=== PATIENT | female | born 1980 | race Caucasian/White ===

== ENCOUNTER 2017-07-17 21:45 | Emergency (ER) | payer MEDICAID, OTHER ==
[~2017-07-17] VITALS: Ht 157.5 cm; Wt 61.7 kg
[2017-07-17 22:41] LABS: Albumin 3.3 g/dL (3.4-5.0); BUN/Creatinine Ratio 30.6; Bilirubin, Total 0.2 mg/dL (0.2-1.0); Calcium 9.2 mg/dL (8.5-10.1); Potassium 3.2 mmol/L (3.5-5.1); Total Protein 7.6 g/dL (6.4-8.2)
[2017-07-17 22:56] LABS: Basophils # (auto) 0 uL; Eosinophils # (auto) 0.1 uL; Monocytes # (auto) 0.8 uL
[2017-07-17 22:58] LABS: Basophils % (auto) 0.2 % (0.0-2.0); Eosinophils % (auto) 0.9 % (0.0-7.0); Hemoglobin 11.1 g/dL (12.2-16.2); Lymphocytes # (auto) 1.9 uL; Lymphocytes % (auto) 14.3 % (10.0-50.0); Mean Corpuscular Hemoglobin 25.6 pg (28.0-32.0); Mean Corpuscular Hgb Conc. 32.6 g/dL (32.0-36.0); Mean Corpuscular Volume 78.7 fL (80.0-100.0); Neutrophils # (auto) 10.3 uL; Neutrophils % (auto) 78.6 % (37.0-80.0); Platelet Count (auto) 366 10^3/uL (140-450); Red Blood Cells 4.32 10^6/uL (4.0-5.20); Red Cell Distribution Width 17.9 % (11.8-14.3); White Blood Cell 13.1 10^3/uL (4.4-10.8)
[2017-07-18 00:16] LABS: INR 0.95 (0.9-1.15); Partial Thromboplastin Time 32.7 sec (22.64-33.71); Prothrombin Time 10.3 sec (9.37-12.3)
[2017-07-18 01:42] LABS: Urine Pregnacy Test Negative (Negative)
[2017-07-18 01:44] LABS: Urine Bacteria NONE SEEN /hpf (None Seen); Urine Blood Negative /uL (Negative); Urine Mucus FEW (None Seen); Urine Specific Gravity 1.027 (1.001-1.035); Urine WBC 1 /hpf (0 - 5)
[2017-07-18 01:52] LABS: Alcohol, Urine < 3.0 mg/dL (0-5); Amphetamine Screen, Urine POSITIVE (NEGATIVE); Barbiturate Scree,Urine NEGATIVE (NEGATIVE); Benzodiazephine Screen, Urine NEGATIVE (NEGATIVE); Cannabinoid Screen, Urine NEGATIVE (NEGATIVE); Cocaine Screen, Urine NEGATIVE (NEGATIVE); Opiate Scree,Urine POSITIVE (NEGATIVE); Phencyclidine Screen, Urine NEGATIVE (NEGATIVE)
[2017-07-18 06:31] VITALS: BP 107/70
[2017-07-18] MEDS ORDERED: LIDOCAINE 1% HCL (LOCAL ANESTH.) INJ 20ML MDV ONE (07:22)
[2017-07-18] MEDS ORDERED: LIDOCAINE 1% HCL (LOCAL ANESTH.) INJ 20ML MDV IN ONE (07:45)
== END 2017-07-18 08:02 | disposition left against medical advice (07) ==
LOC: ER 21:45
DX: L02.414 Cutaneous abscess of left upper limb (principal); F17.210 Nicotine dependence, cigarettes, uncomplicated; Z88.1 Allergy status to other antibiotic agents; Z88.6 Allergy status to analgesic agent
CPT/HCPCS: 10060; 36415; 73090; 80053; 80307; 81001; 81025; 84702; 85025; 85610; 85730; 99285; J2001

== ENCOUNTER 2019-03-29 18:36 | Emergency (ER) | payer MEDICAID ==
[~2019-03-29] VITALS: Ht 162.6 cm; Wt 54.4 kg
[2019-03-29 18:40] VITALS: BP 107/73
[2019-03-29 19:04] LABS: Basophils # (auto) 0 uL; Basophils % (auto) 0.4 % (0.0-2.0); Eosinophils # (auto) 0.1 uL; Eosinophils % (auto) 1.7 % (0.0-7.0); Hematocrit 35.7 % (36.0-46.0); Hemoglobin 11.8 g/dL (12.2-16.2); Lymphocytes # (auto) 2.4 uL; Lymphocytes % (auto) 30.6 % (10.0-50.0); Mean Corpuscular Hemoglobin 27.4 pg (28.0-32.0); Mean Corpuscular Hgb Conc. 33.1 g/dL (32.0-36.0); Mean Corpuscular Volume 82.8 fL (80.0-100.0); Monocytes # (auto) 0.4 uL; Monocytes % (auto) 5.5 % (0.0-12.0); Neutrophils # (auto) 4.9 uL; Neutrophils % (auto) 61.8 % (37.0-80.0); Nucleated Red Blood Cells % 0.1 %; Platelet Count (auto) 235 10^3/uL (140-450); Red Blood Cells 4.31 10^6/uL (4.0-5.20); Red Cell Distribution Width 14.2 % (11.8-14.3); White Blood Cell 7.9 10^3/uL (4.4-10.8)
[2019-03-29 19:11] LABS: Urine Bacteria FEW /hpf (None Seen); Urine Blood 3+ /uL (Negative); Urine Mucus FEW (None Seen); Urine WBC 26 /hpf (0 - 5)
[2019-03-29 19:20] LABS: Albumin 3.3 g/dL (3.4-5.0); Calcium 9.6 mg/dL (8.5-10.1); Potassium 3.8 mmol/L (3.5-5.1)
[2019-03-29 19:24] LABS: BUN/Creatinine Ratio 28.6; Bilirubin, Total 0.2 mg/dL (0.2-1.0); Total Protein 6.7 g/dL (6.4-8.2)
[2019-03-29] MEDS ORDERED: KETOROLAC TROMETH 30 MG/ML 1ML VIAL IV ONE (21:45)
== END 2019-03-29 22:17 | disposition left against medical advice (07) ==
LOC: EDBD 18:36 → ER 18:37
DX: R31.9 Hematuria, unspecified (principal); Z53.21 Procedure and treatment not carried out due to patient leaving prior to being seen by health care provider
CPT/HCPCS: 36415; 80053; 81001; 81025; 85025; J1885

== ENCOUNTER 2019-09-08 22:37 | Emergency (ER) | payer MEDICAID ==
[~2019-09-08] VITALS: Ht 160 cm; Wt 64.9 kg
[2019-09-08 23:44] LABS: Urine Bacteria FEW /hpf (None Seen); Urine Blood 2+ /uL (Negative); Urine Mucus FEW (None Seen); Urine Specific Gravity 1.029 (1.001-1.035); Urine WBC 5 /hpf (0 - 5)
[2019-09-09 00:06] LABS: Basophils # (auto) 0 uL; Basophils % (auto) 0.5 % (0.0-2.0); Eosinophils # (auto) 0.2 uL; Eosinophils % (auto) 2.7 % (0.0-7.0); Hematocrit 38.2 % (36.0-46.0); Hemoglobin 12.3 g/dL (12.2-16.2); Lymphocytes # (auto) 2.7 uL; Lymphocytes % (auto) 31.9 % (10.0-50.0); Mean Corpuscular Hemoglobin 26.8 pg (28.0-32.0); Mean Corpuscular Hgb Conc. 32.3 g/dL (32.0-36.0); Monocytes # (auto) 0.8 uL; Monocytes % (auto) 8.9 % (0.0-12.0); Neutrophils # (auto) 4.8 uL; Platelet Count (auto) 316 10^3/uL (140-450); Red Cell Distribution Width 14.1 % (11.8-14.3); White Blood Cell 8.5 10^3/uL (4.4-10.8)
[2019-09-09 00:24] LABS: Albumin 3.4 g/dL (3.4-5.0); Calcium 8.9 mg/dL (8.5-10.1); Potassium 3.4 mmol/L (3.5-5.1)
[2019-09-09 00:25] LABS: BUN/Creatinine Ratio 25.9
[2019-09-09 00:27] LABS: Bilirubin, Total 0.2 mg/dL (0.2-1.0); Total Protein 7.4 g/dL (6.4-8.2)
[2019-09-09 01:00] VITALS: BP 82/47
[2019-09-09 02:09] LABS: Amphetamine Screen, Urine POSITIVE (NEGATIVE); Barbiturate Scree,Urine NEGATIVE (NEGATIVE); Benzodiazephine Screen, Urine NEGATIVE (NEGATIVE); Cannabinoid Screen, Urine NEGATIVE (NEGATIVE); Cocaine Screen, Urine NEGATIVE (NEGATIVE); Opiate Scree,Urine POSITIVE (NEGATIVE)
[2019-09-09 02:16] LABS: Phencyclidine Screen, Urine NEGATIVE (NEGATIVE)
== END 2019-09-09 02:48 | disposition home or self-care (01) ==
LOC: ER 22:41
DX: N92.6 Irregular menstruation, unspecified (principal); N93.8 Other specified abnormal uterine and vaginal bleeding; F17.210 Nicotine dependence, cigarettes, uncomplicated; Z88.0 Allergy status to penicillin; Z88.1 Allergy status to other antibiotic agents
CPT/HCPCS: 36415; 76856; 80053; 80307; 81001; 81025; 84702; 85025

== ENCOUNTER 2020-10-28 01:14 | Emergency (ER) | payer MEDICAID ==
[~2020-10-28] VITALS: Ht 160 cm; Wt 67.1 kg
[2020-10-28 01:27] VITALS: BP 102/79
== END 2020-10-28 02:21 | disposition left against medical advice (07) ==
LOC: EDUNIT# 01:14 → EDBD 01:14 → ER 01:14
DX: R51.9 Headache, unspecified (principal); Z53.21 Procedure and treatment not carried out due to patient leaving prior to being seen by health care provider

== ENCOUNTER 2020-12-11 10:44 | Inpatient (IN) | payer MEDICAID ==
[~2020-12-11] VITALS: Ht 157.5 cm; Wt 67.5 kg
[2020-12-11 11:35] LABS: Urine Amorphous Crystal FEW /hpf (None Seen); Urine Bacteria FEW /hpf (None Seen); Urine Blood Negative /uL (Negative); Urine Budding Yeast MANY /hpf (None Seen); Urine Specific Gravity 1.013 (1.001-1.035); Urine WBC 16 /hpf (0 - 5); Urine WBC Clumps PRESENT /hpf (None Seen)
[2020-12-11 11:36] LABS: Basophils # (auto) 0 10 ^3/uL (0-0.2); Basophils % (auto) 0.3 % (0.0-2.0); Eosinophils # (auto) 0.1 10 ^3/uL (0-0.8); Eosinophils % (auto) 0.5 % (0.0-7.0); Hematocrit 43.8 % (36.0-46.0); Hemoglobin 14.5 g/dL (12.2-16.2); Lymphocytes # (auto) 1.9 10 ^3/uL (0.4-5.4); Lymphocytes % (auto) 15.3 % (10.0-50.0); Mean Corpuscular Hemoglobin 27.2 pg (28.0-32.0); Mean Corpuscular Volume 82.5 fL (80.0-100.0); Monocytes # (auto) 0.7 10 ^3/uL (0-1.3); Monocytes % (auto) 5.2 % (0.0-12.0); Neutrophils # (auto) 9.9 10 ^3/uL (1.6-8.6); Neutrophils % (auto) 78.7 % (37.0-80.0); Nucleated Red Blood Cells % 0.2 %; Platelet Count (auto) 297 10^3/uL (140-450); Red Blood Cells 5.31 10^6/uL (4.0-5.20); Red Cell Distribution Width 15.3 % (11.8-14.3); White Blood Cell 12.6 10^3/uL (4.4-10.8)
[2020-12-11] MEDS ORDERED: SODIUM CHLORIDE 0.9% 1,000 ML IVB ONE (12:15)
[2020-12-11] MEDS ORDERED: ONDANSETRON HCL 4 MG/2 ML VIAL IV ONE (12:15)
[2020-12-11 12:51] LABS: Albumin 3.6 g/dL (3.4-5.0); Calcium 9.7 mg/dL (8.5-10.1); Potassium 3.8 mmol/L (3.5-5.1)
[2020-12-11 12:54] LABS: BUN/Creatinine Ratio 26.6; Bilirubin, Total 0.2 mg/dL (0.2-1.0); Total Protein 8.2 g/dL (6.4-8.2)
[2020-12-11] MEDS ORDERED: MORPHINE SULF INJ 2 MG/ML SYRINGE 1ML IV ONE (15:00)
[2020-12-11 17:16] LABS: Alcohol, Urine < 3.0 mg/dL (0-10); Amphetamine Screen, Urine POSITIVE (NEGATIVE); Barbiturate Scree,Urine NEGATIVE (NEGATIVE); Benzodiazephine Screen, Urine NEGATIVE (NEGATIVE); Cannabinoid Screen, Urine NEGATIVE (NEGATIVE); Cocaine Screen, Urine NEGATIVE (NEGATIVE); Phencyclidine Screen, Urine NEGATIVE (NEGATIVE)
[2020-12-11 17:24] LABS: Opiate Scree,Urine POSITIVE (NEGATIVE)
[2020-12-11] MEDS ORDERED: PANTOPRAZOLE 40 MG/10 ML VIAL INJ IV ONE (18:00)
[2020-12-11] MEDS ORDERED: PROMETHAZINE HCL 25 MG/ML 1ML IV PRN (19:00)
[2020-12-11] MEDS ORDERED: MORPHINE SULF INJ 2 MG/ML SYRINGE 1ML IV PRN (19:00)
[2020-12-11] MEDS ORDERED: NITROGLYCERIN 0.4 MG SL TAB SL PRN (19:00)
[2020-12-11] MEDS: levoFLOXacin 500MG 100 ML IV SCH (21:02)
[2020-12-11] MEDS: D5W/SOD CHL 0.45%/KCL 20MEQ 1,000 ML IV SCH (21:02)
[2020-12-11] MEDS: metroNIDAZOLE 500MG/100ML 100 ML IV SCH (21:57)
[2020-12-11 22:00] VITALS: BP 100/80
[2020-12-11] MEDS: MORPHINE SULF INJ 2 MG/ML SYRINGE 1ML IV PRN (22:01)
[2020-12-12] MEDS ORDERED: HYDROcodone-ACET 7.5/325MG TAB PO ONE (01:00)
[2020-12-12] MEDS: LORazepam 2MG/ML-1ML VIAL IV PRN ×2 (01:38→23:52)
[2020-12-12 02:07] VITALS: BP 100/80
[2020-12-12 05:07] VITALS: BP 100/59
[2020-12-12] MEDS: metroNIDAZOLE 500MG/100ML 100 ML IV SCH ×3 (06:11→22:41)
[2020-12-12] MEDS: D5W/SOD CHL 0.45%/KCL 20MEQ 1,000 ML IV SCH ×2 (06:12→15:00)
[2020-12-12] MEDS: MORPHINE SULF INJ 2 MG/ML SYRINGE 1ML IV PRN (08:19)
[2020-12-12 09:00] VITALS: BP 99/63
[2020-12-12] MEDS: PANTOPRAZOLE 40 MG/10 ML VIAL INJ IV SCH ×2 (09:41→22:41)
[2020-12-12] MEDS: levoFLOXacin 500MG 100 ML IV SCH (09:41)
[2020-12-12] MEDS ORDERED: MORPHINE SULF INJ 2 MG/ML SYRINGE 1ML IV PRN (11:15)
[2020-12-12] MEDS ORDERED: METHADONE HCL 10 MG TAB PO SCH (11:15)
[2020-12-12 12:49] VITALS: BP 102/69
[2020-12-12] MEDS ORDERED: METHADONE HCL 10 MG TAB PO ONE (13:15)
[2020-12-12] MEDS: SUCRALFATE 1 GM/10 ML ORAL SUSP PO SCH ×2 (16:12→22:41)
[2020-12-12 17:00] VITALS: BP 108/65
[2020-12-12 22:00] VITALS: BP 103/63
[2020-12-12] MEDS: MORPHINE SULFATE 4 MG/ML SYR/VIAL IV PRN (22:41)
[2020-12-13] MEDS: MORPHINE SULFATE 4 MG/ML SYR/VIAL IV PRN ×2 (04:52→14:02)
[2020-12-13 05:44] VITALS: BP 112/60
[2020-12-13] MEDS: metroNIDAZOLE 500MG/100ML 100 ML IV SCH ×2 (06:04→14:02)
[2020-12-13] MEDS: SUCRALFATE 1 GM/10 ML ORAL SUSP PO SCH ×3 (06:04→17:16)
[2020-12-13] MEDS: D5W/SOD CHL 0.45%/KCL 20MEQ 1,000 ML IV SCH ×2 (06:28→11:00)
[2020-12-13 06:34] LABS: Basophils # (auto) 0 10 ^3/uL (0-0.2); Basophils % (auto) 0.3 % (0.0-2.0); Eosinophils # (auto) 0.2 10 ^3/uL (0-0.8); Eosinophils % (auto) 2.9 % (0.0-7.0); Hemoglobin 11.1 g/dL (12.2-16.2); Lymphocytes # (auto) 2.2 10 ^3/uL (0.4-5.4); Lymphocytes % (auto) 37.8 % (10.0-50.0); Mean Corpuscular Hemoglobin 28.3 pg (28.0-32.0); Mean Corpuscular Hgb Conc. 34.5 g/dL (32.0-36.0); Mean Corpuscular Volume 82.1 fL (80.0-100.0); Monocytes # (auto) 0.5 10 ^3/uL (0-1.3); Monocytes % (auto) 9.1 % (0.0-12.0); Neutrophils # (auto) 2.9 10 ^3/uL (1.6-8.6); Neutrophils % (auto) 49.9 % (37.0-80.0); Platelet Count (auto) 226 10^3/uL (140-450); Red Cell Distribution Width 14.5 % (11.8-14.3); White Blood Cell 5.8 10^3/uL (4.4-10.8)
[2020-12-13 06:47] LABS: Potassium 3.5 mmol/L (3.5-5.1)
[2020-12-13 07:03] LABS: Albumin 2.6 g/dL (3.4-5.0); BUN/Creatinine Ratio 21.3; Bilirubin, Total 0.4 mg/dL (0.2-1.0); Calcium 8.7 mg/dL (8.5-10.1); Total Protein 5.9 g/dL (6.4-8.2)
[2020-12-13 09:00] VITALS: BP 115/69
[2020-12-13] MEDS: PANTOPRAZOLE 40 MG/10 ML VIAL INJ IV SCH (09:31)
[2020-12-13] MEDS: levoFLOXacin 500MG 100 ML IV SCH (09:31)
[2020-12-13] MEDS ORDERED: D5W/SOD CHL 0.45%/KCL 20MEQ 1,000 ML IV SCH (14:15)
[2020-12-13 17:00] VITALS: BP 148/88
[2020-12-13] MEDS ORDERED: DOCUSATE SOD 100 MG CAP PO SCH (22:00)
== END 2020-12-13 18:55 | disposition left against medical advice (07) | DRG 254 ==
LOC: ER 10:44 → TELE 18:56 → TELE-WESTW 21:18
PROVIDERS: ADMIT Nurse Practitioner Acute Care; ATTEND Internal Medicine
DX: K92.1 Melena (principal); R65.10 Systemic inflammatory response syndrome (SIRS) of non-infectious origin without acute organ dysfunction; K56.7 Ileus, unspecified; Z20.822 Contact with and (suspected) exposure to COVID-19; D36.9 Benign neoplasm, unspecified site; F11.10 Opioid abuse, uncomplicated; F17.210 Nicotine dependence, cigarettes, uncomplicated; F31.30 Bipolar disorder, current episode depressed, mild or moderate severity, unspecified; T50.995A Adverse effect of other drugs, medicaments and biological substances, initial encounter; N20.0 Calculus of kidney; F15.90 Other stimulant use, unspecified, uncomplicated; Z90.49 Acquired absence of other specified parts of digestive tract; Z79.899 Other long term (current) drug therapy; Z79.891 Long term (current) use of opiate analgesic; Z79.01 Long term (current) use of anticoagulants; Z88.8 Allergy status to other drugs, medicaments and biological substances; Z88.0 Allergy status to penicillin; Z88.1 Allergy status to other antibiotic agents; Y92.89 Other specified places as the place of occurrence of the external cause
CPT/HCPCS: 36415; 74176; 80053; 80307; 81001; 81025; 82270; 83690; 83735; 85025; 87040; 87045; 87426; 87427; 93306; 96361; 96374; 96375; C9113; G0378; J1956; J2405; J3490

== ENCOUNTER 2023-09-17 23:23 | Emergency (ER) | payer MEDICAID ==
[~2023-09-17] VITALS: Ht 160 cm; Wt 70.4 kg
[~2023-09-17 23:23] MED LIST: PANT40TA2 PO; SUCR1TAB22 PO
[2023-09-17 23:37] VITALS: BP 94/63; PULSE 86; RESP 18; O2SAT 100
[2023-09-18 00:09] LABS: Urine Bacteria NONE SEEN /hpf (None Seen); Urine Blood 3+ /uL (Negative); Urine Clarity HAZY (Clear); Urine Color Yellow (Yellow); Urine Mucus FEW (None Seen); Urine Protein, UAD 1+ (Negative); Urine Specific Gravity 1.024 (1.001-1.035); Urine Urobilinogen Normal (Negative); Urine WBC 12 /hpf (0 - 5)
[2023-09-18 01:30] LABS: Basophils # (auto) 0 10 ^3/uL (0-0.2); Basophils % (auto) 0.4 % (0.0-2.0); Eosinophils # (auto) 0.1 10 ^3/uL (0-0.8); Hemoglobin 11.9 g/dL (12.2-16.2); Monocytes # (auto) 0.4 10 ^3/uL (0-1.3); Monocytes % (auto) 6.2 % (0.0-12.0); Neutrophils # (auto) 3.7 10 ^3/uL (1.6-8.6); Red Cell Distribution Width 16.9 % (11.8-14.3); White Blood Cell 6.1 10^3/uL (4.4-10.8)
[2023-09-18 01:31] LABS: Eosinophils % (auto) 1.5 % (0.0-7.0); Hematocrit 36.3 % (36.0-46.0); Lymphocytes % (auto) 32.3 % (10.0-50.0); Mean Corpuscular Hemoglobin 26.5 pg (28.0-32.0); Mean Corpuscular Hgb Conc. 32.8 g/dL (32.0-36.0); Mean Corpuscular Volume 80.7 fL (80.0-100.0); Neutrophils % (auto) 59.6 % (37.0-80.0)
[2023-09-18 01:44] LABS: Alanine Aminotransferase 10 U/L (7-40); Albumin 4.1 g/dL (3.2-4.8); Alkaline Phosphatase 49 U/L (46-116); Anion Gap 0 (5-15); Aspartate Aminotransferase < 8 U/L (13-40); BUN/Creatinine Ratio 21.3 (10.0-20.0); Bilirubin, Total 0.2 mg/dL (0.2-1.0); Blood Urea Nitrogen 13 mg/dL (9-23); Calcium 10.4 mg/dL (8.7-10.4); Carbon Dioxide 34 mmol/L (20-30); Chloride 109 mmol/L (98-107); Glucose 85 mg/dL (74-106); Lipase 24 U/L (12-53); Potassium 3.7 mmol/L (3.5-5.1); Sodium 143 mmol/L (136-145); Total Protein 6.7 g/dL (5.7-8.2)
[2023-09-18] MEDS ORDERED: ZOFR4T PO (02:53)
[2023-09-18] MEDS: ONDANSETRON ODT 4 MG TAB PO ONE (03:43)
== END 2023-09-18 03:42 | disposition home or self-care (01) ==
LOC: ER 23:23
DX: R10.84 Generalized abdominal pain (principal); R11.2 Nausea with vomiting, unspecified; F17.210 Nicotine dependence, cigarettes, uncomplicated; F12.10 Cannabis abuse, uncomplicated; F15.10 Other stimulant abuse, uncomplicated; F11.10 Opioid abuse, uncomplicated; Z90.49 Acquired absence of other specified parts of digestive tract; Z32.02 Encounter for pregnancy test, result negative; Z88.0 Allergy status to penicillin
CPT/HCPCS: 36415; 74176; 80053; 81001; 81025; 83605; 83690; 85025

== ENCOUNTER 2023-09-18 23:13 | Emergency (ER) | payer MEDICAID ==
[~2023-09-18] VITALS: Ht 160 cm; Wt 70.1 kg
[~2023-09-18 23:13] MED LIST changes: +ZOFR4T PO
[2023-09-18 23:54] VITALS: BP 96/56; PULSE 72; RESP 18; O2SAT 100
== END 2023-09-19 00:09 | disposition left against medical advice (07) ==
LOC: ER 23:13
DX: R10.9 Unspecified abdominal pain (principal); R11.2 Nausea with vomiting, unspecified; Z53.21 Procedure and treatment not carried out due to patient leaving prior to being seen by health care provider

== ENCOUNTER 2023-09-24 12:41 | Emergency (ER) | payer MEDICAID ==
[~2023-09-24] VITALS: Ht 160 cm; Wt 68.1 kg
[2023-09-24 13:46] VITALS: BP 123/64; PULSE 62; RESP 16; O2SAT 95
[2023-09-24 14:22] LABS: Eosinophils # (auto) 0.1 10 ^3/uL (0-0.8); Monocytes # (auto) 0.7 10 ^3/uL (0-1.3); Nucleated Red Blood Cells % 0.1 %
[2023-09-24 14:23] LABS: Basophils # (auto) 0.1 10 ^3/uL (0-0.2); Basophils % (auto) 0.6 % (0.0-2.0); Eosinophils % (auto) 0.7 % (0.0-7.0); Hematocrit 35.4 % (36.0-46.0); Hemoglobin 11.7 g/dL (12.2-16.2); Lymphocytes # (auto) 1.8 10 ^3/uL (0.4-5.4); Lymphocytes % (auto) 16.7 % (10.0-50.0); Mean Corpuscular Hemoglobin 26.2 pg (28.0-32.0); Mean Corpuscular Volume 79.4 fL (80.0-100.0); Monocytes % (auto) 6.2 % (0.0-12.0); Neutrophils % (auto) 75.8 % (37.0-80.0); Red Blood Cells 4.46 10^6/uL (4.0-5.20); Red Cell Distribution Width 16.7 % (11.8-14.3); White Blood Cell 10.6 10^3/uL (4.4-10.8)
[2023-09-24 14:41] LABS: Albumin 4.2 g/dL (3.2-4.8); Alkaline Phosphatase 54 U/L (46-116); Anion Gap 5 (5-15); Aspartate Aminotransferase < 8 U/L (13-40); BUN/Creatinine Ratio 23.9 (10.0-20.0); Bilirubin, Total 0.2 mg/dL (0.2-1.0); Blood Urea Nitrogen 16 mg/dL (9-23); Calcium 10.2 mg/dL (8.5-10.1); Carbon Dioxide 30 mmol/L (20-30); Chloride 107 mmol/L (98-107); Glucose 146 mg/dL (74-106); Potassium 3.7 mmol/L (3.5-5.1); Sodium 142 mmol/L (136-145); Total Protein 6.6 g/dL (5.7-8.2)
[2023-09-24 14:49] LABS: Alanine Aminotransferase 9 U/L (7-40)
[2023-09-24] MEDS ORDERED: KETOROLAC TROMETH 30 MG/ML 1ML VIAL IV ONE (15:45)
== END 2023-09-24 17:05 | disposition left against medical advice (07) ==
LOC: ER 12:41 → EDBD 12:41 → ER 17:05
DX: R10.9 Unspecified abdominal pain (principal); F17.210 Nicotine dependence, cigarettes, uncomplicated; Z90.49 Acquired absence of other specified parts of digestive tract; Z79.899 Other long term (current) drug therapy; Z88.0 Allergy status to penicillin; Z88.1 Allergy status to other antibiotic agents; Z88.8 Allergy status to other drugs, medicaments and biological substances
CPT/HCPCS: 36415; 80053; 85025